=== PATIENT | female | born 1965 | race Caucasian/White ===

== ENCOUNTER 2022-07-26 09:43 | Outpatient (REF) | payer MEDICARE, MEDICAID, SELFPAY ==
--- NOTE | 2022-07-26 08:20 | SKI_PTH ---
PATIENT: Cyndie Ruiz LOC: [facility] U#:[id number] AGE/SX: 57/F ROOM: RE07/26/[address]: Joshua Morales MD : [id number] BED: DIS: 07/26/2022 SPEC #: [id number] RECD: 07/26/22 12:54 STATUS: ANTONIO REQ #: [id number] NITIN: 07/26/22 08:[address]: Joshua Morales DEPT: Surgical Specimen RECD BY: Inga Fields ENTERED: 07/26/22 12:54 SP TYPE: JC WARREN DR: Corinna Chen MD Tissues: 1 - SKIN BIOPSY(SHAVE/PUNCH) Procedures: GROSS AND MICRO LEVEL 4 Comments: [id number]
== END 2022-07-26 09:44 | disposition home or self-care (01) ==
LOC: LBN 09:43
PROVIDERS: PCP Physician Assistant; Visit Provider Otolaryngology
DX: D10.39 Benign neoplasm of other parts of mouth; K13.79 Other lesions of oral mucosa
CPT/HCPCS: 88305